=== PATIENT | female | born 1995 | race African-American/Black ===

== ENCOUNTER 2019-06-07 20:48 | Emergency (ER) | payer OTHER ==
[2019-06-07 21:25] LABS: ABS Lymphocytes 2.8 10^3/ul (1.0-4.8); ABS Monocytes 0.8 10^3/ul (0-0.8); ABS Neutrophils 4.3 10^3/ul (1.5-7.7); Eosinophil % 0.6 %; Hematocrit 35 % (35-47); Lymphocyte % 35.1 %; Mean Corpuscular HGB Conc 35 g/dL (31-36); Mean Corpuscular Hemoglobin 32 pg (27-31); Mean Corpuscular Volume 92 fL (80-97); Mean Platelet Volume 8.9 fL (7.4-10.4); Nucleated Red Blood Cells % 0.1; Platelet Count 192 10^3/uL (150-450); Red Blood Count 3.75 10^6 /uL (3.70-4.87); Red Cell Distribution Width 14 % (10-15)
--- NOTE | 2019-06-07 21:41 | ED ---
- HPI Summary HPI Summary: 23 year old female at 6-8 weeks presents with cramping today. She states she's been having intermittent lower abdominal cramping. States is more intense than her period. Denies any vaginal bleeding. No abnormal vaginal discharge. Denies any urinary symptoms. She admits to some nausea but no vomiting. No diarrhea or constipation. Has never had this pain before. No previous belly surgeries. Has no medical conditions. - History of Current Complaint Chief Complaint: EDOBProblems Stated Complaint: AND I HAVE CRAMPS PER PT Time Seen by Provider: 06/07/19 21:06 Pain Intensity: 9 - Allergies/Home Medications Allergies/Adverse Reactions: Allergies Allergy/AdvReac Type Severity Reaction Status Date / Time No Known Allergies Allergy Verified 06/07/19 20:53 PMH/Surg Hx/FS Hx/Imm Hx Endocrine/Hematology History: Denies: Hx Anticoagulant Therapy Respiratory History: Denies: Hx Asthma Infectious Disease History: No Infectious Disease History: Denies: Traveled Outside the [place] in Last 30 Days - Family History Known Family History: Positive: Non-Contributory - Social History Alcohol Use: Occasionally Substance Use Type: Reports: None Smoking Status (MU): Never Smoked Tobacco Review of Systems Negative: Fever Negative: Chest Pain Negative: Shortness Of Breath Positive: Abdominal Pain All Other Systems Reviewed And Are Negative: Yes Physical Exam - Physical Exam Triage Information Reviewed: Yes Vital Signs Reviewed: Yes Appearance: Positive: Well-Appearing Skin: Positive: Warm, Dry Head/Face: Positive: Normal Head/Face Inspection Eyes: Positive: Normal, Conjunctiva Clear ENT: Positive: Pharynx normal Respiratory/Lung Sounds: Positive: Clear to Auscultation, Breath Sounds Present Cardiovascular: Positive: Normal, RRR Abdomen Description: Positive: Soft, Other: - mild diffuse abd pain Bowel Sounds: Positive: Present Musculoskeletal: Positive: Normal Neurological: Positive: Normal Psychiatric: Positive: Normal Diagnostics - Vital Signs Vital Signs Temp Pulse Resp BP Pulse Ox 06/07/19 20:50 98.9 F 82 16 140/79 100 - Laboratory Lab Results: Lab Results 06/07/19 Range/Units 21:18 WBC 8.0 (3.5-10.8) 10^3/uL RBC 3.75 (3.70-4.87) 10^6 /uL Hgb 12.0 (12.0-16.0) g/dL Hct 35 (35-47) % MCV 92 (80-97) fL MCH 32 H (27-31) pg MCHC 35 (31-36) g/dL RDW 14 (10-15) % Plt Count 192 (150-450) 10^3/uL MPV 8.9 (7.4-10.4) fL Neut % (Auto) 54.3 % Lymph % (Auto) 35.1 % [place] % (Auto) 9.8 % Eos % (Auto) 0.6 % Baso % (Auto) 0.2 % Absolute Neuts (auto) 4.3 (1.5-7.7) 10^3/ul Absolute Lymphs (auto) 2.8 (1.0-4.8) 10^3/ul Absolute Monos (auto) 0.8 (0-0.8) 10^3/ul Absolute Eos (auto) 0.0 (0-0.6) 10^3/ul Absolute Basos (auto) 0.0 (0-0.2) 10^3/ul Absolute Nucleated RBC 0.0 10^3/ul Nucleated RBC % 0.1 Result Diagrams: 06/07/19 21:18 06/07/19 21:18 Lab Statement: Any lab studies that have been ordered have been reviewed, and results considered in the medical decision making process. - Ultrasound No standard instances Ultrasound Interpretation Completed By: Radiologist Summary of Ultrasound Findings: IMPRESSION: 1. Viable intrauterine with an ultrasound age of 11 weeks 0 days which correlates to an FERN of 2019. 2. Posterior uterine leiomyoma. Course/Dx - Course Course Of Treatment: 23 year old female at 6-8 weeks presents with cramping today. She states she's been having intermittent lower abdominal cramping. States is more intense than her period. Denies any vaginal bleeding. No abnormal vaginal discharge. Denies any urinary symptoms. She admits to some nausea but no vomiting. No diarrhea or constipation. Has never had this pain before. No previous belly surgeries. Has no medical conditions. On exam has mild diffuse abd tenderness. White blood cell count normal. Crp normal. HCG 41,000. Urine shows potential UTI. We'll treat with Macrobid. Ultrasound shows iup. will have follow up with ob. patient understand and agrees with plan. - Differential Diagnosis/HQI/PQRI: Spontaneous , Threatened , Ectopic , Intrauterine - Diagnoses Provider Diagnoses: UTI (urinary tract infection), Intrauterine Discharge ED - Sign-Out/Discharge Documenting (check all that apply): Patient Departure Patient Received Moderate/Deep Sedation with Procedure: No - Discharge Plan Condition: Good Disposition: HOME Prescriptions: Nitrofurantoin Monohyd/M-Cryst [Macrobid 100 mg Capsule] 100 mg PO BID #9 cap Patient Education Materials: Urinary Tract Infection in (ED) Referrals: [facility] [Outside] Rayo Bocanegra MD [Medical Doctor] - Additional Instructions: take macrobid twice a day for 5 days Take tyenlol as needed for pain every 6 hours follow up with ob Return to ED if develop any new or worsening symptoms - Billing Disposition and Condition Condition: GOOD Disposition: Home
[2019-06-07 21:44] LABS: Urine Appearance Cloudy; Urine Bacteria 1+ (Absent); Urine Bilirubin Negative (Negative); Urine Blood Negative (Negative); Urine Color Yellow; Urine Glucose Negative (Negative); Urine Ketones Negative (Negative); Urine Nitrite Negative (Negative); Urine Protein Negative (Negative); Urine Red Blood Cell Trace(0-2/hpf) (Absent); Urine Specific Gravity 1.027 (1.010-1.030); Urine Squamous Epithelial Cell Present (Absent); Urine Urobilinogen Negative (Negative); Urine White Blood Cell 2+(11-20/hpf) (Absent)
[2019-06-07 21:46] LABS: Albumin 3.8 g/dL (3.2-5.2); Albumin/Globulin Ratio 1.2 (1-3); BUN/Creatinine Ratio 16.4 (8-20); C Reactive Protein 4.75 mg/L (<8.01); Calcium 8.9 mg/dL (8.6-10.3); EGFR African American 148.4 (>60); EGFR Non-African American 122.6 (>60); Globulin 3.2 g/dL (2-4); Potassium 3.6 mmol/L (3.5-5.0); Total Bilirubin 0.2 mg/dL (0.2-1.0)
[2019-06-08] MEDS ORDERED: Nitrofurantoin Macrocrystals* 100 MG CAP PO ONE
[2019-06-08 00:11] VITALS: BP 139/79
== END 2019-06-08 00:09 | disposition home or self-care (01) ==
LOC: ED 20:48
DX: O23.40 Unspecified infection of urinary tract in pregnancy, unspecified trimester (principal); Z3A.08 8 weeks gestation of pregnancy; R10.9 Unspecified abdominal pain
CPT/HCPCS: 36415; 76801; 80053; 81003; 81015; 83690; 84702; 85025; 86140; 87086; 99283; A9270-GY

== ENCOUNTER 2019-12-30 18:08 | Emergency (ER) | payer OTHER ==
--- NOTE | 2019-12-30 18:27 | ED ---
HPI Chest Pain - HPI Summary HPI Summary: 24-year-old female with no significant past medical history presents to the emergency department today complaining of 6 out of 10 "nagging" midsternal chest pain which she has had since yesterday. Patient is unable to identify provoking factor. Patient states her pain is made worse with movement of her upper extremities and rolling to her side. Patient denies associated symptoms such as lightheadedness, jaw pain, arm pain, lightheadedness, shortness of breath, abdominal pain. Patient states she has never experienced pain like this before. Patient states her pain is not made worse with exertion. Patient denies recent significant alcohol use or recreational drug use. Patient has never had an echocardiogram or stress test. Patient has not taken any medication for her pain prior to arrival. Patient is otherwise well and denies fevers, abdominal pain, shortness of breath, nausea, vomiting, diarrhea, pain with urination, rash, sore throat, cough, nasal congestion. - History of Current Complaint [facility] Time Seen by Provider: 12/30/19 18:13 Hx Obtained From: Patient Onset/Duration: Started Days Ago Timing: Constant Initial Severity: Mild Current Severity: Mild Pain Intensity: 3 Pain Scale Used: 0-10 Numeric Chest Pain Location: Mid Sternal Chest Pain Radiates: No Character: Other: - nagging Aggravating Factor(s): Position Alleviating Factor(s): Rest Associated Signs and Symptoms: Positive: Chest Pain. Negative: Recent Stress, Shortness of Breath, Fever, Lightheadedness, Nausea, Cough, Back Pain, Abdominal Pain, Vomiting, Wheezing, Nasal Congestion, URI - Allergy/Home Medications Allergies/Adverse Reactions: Allergies Allergy/AdvReac Type Severity Reaction Status Date / Time No Known Allergies Allergy Verified 12/30/19 18:13 Home Medications: Home Medications Norgestimate-Ethinyl Estradiol [Estarylla 0.25-0.035 mg Tablet] 1 tab PO DAILY 12/30/19 [History Confirmed 12/30/19] PMH/Surg Hx/FS Hx/Imm Hx Endocrine/Hematology History: Denies: Hx Anticoagulant Therapy Respiratory History: Denies: Hx Asthma Infectious Disease History: No Infectious Disease History: Denies: Traveled Outside the [place] in Last 30 Days - Family History Known Family History: Positive: Non-Contributory - Social History Alcohol Use: Occasionally Substance Use Type: Reports: None Smoking Status (MU): Never Smoked Tobacco Review of Systems Constitutional: Negative Eyes: Negative ENT: Negative Positive: Chest Pain. Negative: Palpitations Respiratory: Negative Gastrointestinal: Negative Genitourinary: Negative Musculoskeletal: Negative Skin: Negative Neurological/Mental Status: Negative Psychological: Normal All Other Systems Reviewed And Are Negative: Yes Physical Exam Triage Information Reviewed: Yes Vital Signs On Initial Exam: Initial Vitals Temp Pulse Resp BP Pulse Ox 98.0 F 64 18 154/83 100 12/30/19 18:10 12/30/19 18:10 12/30/19 18:10 12/30/19 18:10 12/30/19 18:10 Vital Signs Reviewed: Yes Appearance: Positive: Well-Appearing, No Pain Distress, Well-Nourished Skin: Positive: Warm, Skin Color Reflects Adequate Perfusion Eyes: Positive: EOMI, PEDRO LUIS ENT: Positive: Hearing grossly normal Respiratory/Lung Sounds: Positive: Clear to Auscultation, Breath Sounds Present Cardiovascular: Positive: RRR, S1, S2 Abdomen Description: Positive: Nontender, Soft Musculoskeletal: Positive: Strength/ROM Intact Neurological: Positive: Sensory/Motor Intact, Alert, Oriented to Person Place, Time, Normal Gait, Facial Symmetry, Speech Normal Psychiatric: Positive: Normal, Affect/Mood Appropriate AVPU Assessment: Alert Procedures - Sedation Patient Received Moderate/Deep Sedation with Procedure: No Diagnostics - Vital Signs Vital Signs Temp Pulse Resp BP Pulse Ox 12/30/19 18:10 98.0 F 64 18 154/83 100 - Laboratory Result Diagrams: 12/30/19 18:40 12/30/19 18:40 Lab Statement: Any lab studies that have been ordered have been reviewed, and results considered in the medical decision making process. Chest Pain Course/Dx - Course Course Of Treatment: Patient was evaluated in the emergency department today for chest pain. Vitals noted and stable. EKG was done promptly which showed no evidence of STEMI. Sinus bradycardia at a rate of 58 bpm. Normal [place] and QT interval. There are T-wave inversions in lead 3. There are no prior EKGs available for comparison. No significant abnormalities. No leukocytosis, anemia, electrolyte disturbance. Troponin 0.00. HEART score: 1. Serial troponins were deemed unnecessary as patient has been symptomatic for greater than 24 hours. PERC positive, wells low risk. Chest xray shows no pathology.There appeared to be no life-threatening pathology requiring intervention at this time including myocardial infarction, pulmonary embolism, aortic dissection. Patient discharged to outpatient follow-up. Patient agrees with plan. - Chest Pain Differential Diagnosis/HQI/PQRI: Acute DE, ACS, Angina, Chest Wall, Pulmonary Embolism - Diagnoses Provider Diagnoses: Atypical chest pain Discharge ED - Sign-Out/Discharge Documenting (check all that apply): Patient Departure - Discharge Plan Condition: Stable Disposition: HOME Patient Education Materials: Chest Pain (ED) Referrals: [facility] [Outside] - 3 Days Additional Instructions: You were seen in the emergency department today due to chest pain. Cardiac workup was done today including an EKG and blood work which found no evidence of acute pathology requiring intervention at this time. Although I am uncertain what is causing your symptoms cardiac origin cannot be ruled out. Please follow- up with your primary care provider or food management aide in 3 days for further evaluation and management. Please return to this emergency Department immediately if you develop any new or worsening symptoms. - Billing Disposition and Condition Condition: STABLE Disposition: Home - Attestation Statements Provider Attestation: I was available for consult. This patient was seen by the RICHARD. The patient was not presented to, seen by, or examined by me. Antonio Contreras MD
[2019-12-30 18:50] LABS: ABS Eosinophils 0.1 10^3/ul (0-0.6); ABS Lymphocytes 2.2 10^3/ul (1.0-4.8); ABS Monocytes 0.6 10^3/ul (0-0.8); ABS Neutrophils 2.3 10^3/ul (1.5-7.7); Eosinophil % 1.3 %; Hematocrit 37 % (35-47); Hemoglobin 12.5 g/dL (12.0-16.0); Lymphocyte % 42.1 %; Mean Corpuscular HGB Conc 34 g/dL (31-36); Mean Corpuscular Hemoglobin 32 pg (27-31); Mean Corpuscular Volume 93 fL (80-97); Mean Platelet Volume 9.4 fL (7.4-10.4); Nucleated Red Blood Cells % 0.2; Platelet Count 209 10^3/uL (150-450); Red Blood Count 3.92 10^6 /uL (3.70-4.87); Red Cell Distribution Width 13 % (10-15); White Blood Count 5.2 10^3/uL (3.5-10.8)
[2019-12-30 19:07] LABS: ALT 8 U/L (7-52); AST 14 U/L (13-39); Albumin 3.7 g/dL (3.2-5.2); Albumin/Globulin Ratio 1.1 (1-3); Alkaline Phosphatase 32 U/L (34-104); Anion Gap 6 mmol/L (2-11); BUN/Creatinine Ratio 15.2 (8-20); Blood Urea Nitrogen 10 mg/dL (6-24); CO2 Carbon Dioxide 23 mmol/L (22-32); Chloride 107 mmol/L (101-111); EGFR African American 134.3 (>60); Globulin 3.4 g/dL (2-4); Glucose 95 mg/dL (70-100); Sodium 136 mmol/L (135-145); Total Protein 7.1 g/dL (6.4-8.9)
[2019-12-30 19:24] LABS: HCG Pregnancy < 0.60 mIU/mL
[2019-12-30 19:33] VITALS: BP 137/73
== END 2019-12-30 19:32 | disposition home or self-care (01) ==
LOC: ED 18:08
DX: R07.9 Chest pain, unspecified (principal); R07.89 Other chest pain; Z79.3 Long term (current) use of hormonal contraceptives
CPT/HCPCS: 36415; 71046; 80053; 84484; 84702; 85025; 93005; 99283